=== PATIENT | female | born 1990 | race Caucasian/White ===

== ENCOUNTER 2021-09-05 12:52 | Emergency (ER) | payer OTHER ==
[~2021-09-05] VITALS: Ht 175.3 cm; Wt 68.1 kg
--- NOTE | 2021-09-05 13:06 | NUR ---
PT LIFTED A 10-11-LBS BOX, INJURED ON TUESDAY. PROGRESSINGLY GETTING WORSE.
[2021-09-05] MEDS ORDERED: HYDR-3965 PO (13:49)
[2021-09-05] MEDS ORDERED: ketorolac trometh. 30mg/ml inj. IM ONE (13:55)
[2021-09-05] MEDS ORDERED: morphine 4 MG/ML inj SYRINge IM ONE (13:55)
[2021-09-05 14:12] VITALS: BP 108/72
== END 2021-09-05 14:13 | disposition home or self-care (01) ==
LOC: ER 12:53
DX: G89.29 Other chronic pain (principal); M54.50 Low back pain, unspecified; Z98.890 Other specified postprocedural states; Z79.899 Other long term (current) drug therapy
CPT/HCPCS: 96372; 99284; J1885; J2270